=== PATIENT | male | born 1985 | race Caucasian/White ===

== ENCOUNTER 2017-10-06 01:20 | Emergency (ER) | payer OTHER ==
[~2017-10-06] VITALS: Ht 167.6 cm; Wt 76.2 kg
[2017-10-06] MEDS ORDERED: NORCO 5-325 TA1 EACH PO ×2 (01:35→01:36)
[2017-10-06] MEDS ORDERED: IBUPROFEN 400400 M2 PO (01:45)
== END 2017-10-06 01:30 | disposition home or self-care (01) ==
LOC: ER 01:20
DX: T26.92XA Corrosion of left eye and adnexa, part unspecified, initial encounter (principal); T26.91XA Corrosion of right eye and adnexa, part unspecified, initial encounter; F17.210 Nicotine dependence, cigarettes, uncomplicated; X58.XXXA Exposure to other specified factors, initial encounter; Y93.89 Activity, other specified; Y92.098 Other place in other non-institutional residence as the place of occurrence of the external cause; Y99.8 Other external cause status